=== PATIENT | male | born 1945 | race Native Hawaiian/Other Pacific Islander ===

== ENCOUNTER 2016-05-18 16:53 | Outpatient (CLI) | payer OTHER, BC ==
[~2016-05-18 16:53] MED LIST: BYSTOLIC10 MG PO; LISI10TA11 PO; METFORMIN ER1000 MG PO; OMEP40CA PO; SIMV20TA2 PO
[2016-05-18 17:11] LABS: PLATELET COUNT 133 K/uL (142-355)
[2016-05-18 17:32] LABS: POTASSIUM 5.7 mmol/L (3.6-5.2)
== END 2016-05-18 19:25 | disposition home or self-care (01) ==
LOC: LAB 16:53
PROVIDERS: Internal Medicine
DX: E11.9 Type 2 diabetes mellitus without complications (principal)
CPT/HCPCS: 80053; 80061; 81000; 82043; 82570; 83036; 84439; 84443; 85027

== ENCOUNTER 2016-11-23 09:36 | Outpatient (CLI) | payer OTHER, BC ==
[2016-11-23 09:52] LABS: PLATELET COUNT 134 K/uL (142-355)
[2016-11-23 10:26] LABS: POTASSIUM 4.8 mmol/L (3.6-5.2)
== END 2016-11-23 18:59 | disposition home or self-care (01) ==
LOC: LAB 09:36
PROVIDERS: Internal Medicine
DX: E11.9 Type 2 diabetes mellitus without complications (principal); Z12.5 Encounter for screening for malignant neoplasm of prostate
CPT/HCPCS: 80053; 80061; 81000; 82043; 82570; 83036; 84153; 84439; 84443; 85027

== ENCOUNTER 2017-02-07 11:04 | Outpatient (CLI) | payer OTHER, BC ==
[2017-02-07 11:26] LABS: PLATELET COUNT 152 K/uL (142-355)
== END 2017-02-07 12:05 | disposition home or self-care (01) ==
LOC: LABW 11:04
PROVIDERS: Internal Medicine Hematology & Oncology
DX: D64.89 Other specified anemias (principal); R79.89 Other specified abnormal findings of blood chemistry
CPT/HCPCS: 36415; 82728; 83540; 83550; 85027

== ENCOUNTER 2017-06-07 14:29 | Outpatient (CLI) | payer OTHER, BC ==
[2017-06-07 15:03] LABS: PLATELET COUNT 122 K/uL (142-355)
[2017-06-07 16:02] LABS: POTASSIUM 4.7 mmol/L (3.6-5.2)
== END 2017-06-07 19:26 | disposition home or self-care (01) ==
LOC: LAB 14:29
PROVIDERS: Internal Medicine
DX: E11.9 Type 2 diabetes mellitus without complications (principal)
CPT/HCPCS: 80053; 80061; 81000; 82043; 82570; 83036; 84439; 84443; 85027

== ENCOUNTER 2017-08-13 10:45 | Outpatient (CLI) | payer OTHER, BC ==
[2017-08-13 11:22] LABS: PLATELET COUNT 125 K/uL (142-355)
[2017-08-13 13:07] LABS: POTASSIUM 4.8 mmol/L (3.6-5.2)
== END 2017-08-13 19:59 | disposition home or self-care (01) ==
LOC: LABW 10:45
PROVIDERS: Nurse Practitioner Family
DX: D64.89 Other specified anemias (principal); D50.8 Other iron deficiency anemias
CPT/HCPCS: 36415; 80053; 82248; 82728; 83540; 83550; 85027

== ENCOUNTER 2017-12-17 13:58 | Outpatient (CLI) | payer OTHER, BC ==
[2017-12-17 14:23] LABS: PLATELET COUNT 139 K/uL (142-355)
[2017-12-17 14:57] LABS: POTASSIUM 5.4 mmol/L (3.6-5.2)
== END 2017-12-17 23:32 | disposition home or self-care (01) ==
LOC: LAB 13:58
PROVIDERS: Internal Medicine
DX: Z00.00 Encounter for general adult medical examination without abnormal findings (principal); E11.9 Type 2 diabetes mellitus without complications; Z12.5 Encounter for screening for malignant neoplasm of prostate
CPT/HCPCS: 80053; 80061; 81000; 82043; 82570; 83036; 84153; 84443; 85027

== ENCOUNTER 2017-12-26 08:26 | Outpatient (CLI) | payer OTHER, BC | END 2017-12-26 20:12 | disposition home or self-care (01) | LOC: US 08:26 | DX: Z13.6 Encounter for screening for cardiovascular disorders (principal) ==

== ENCOUNTER 2018-06-21 10:02 | Outpatient (CLI) | payer OTHER, BC ==
[2018-06-21 11:06] LABS: PLATELET COUNT 120 K/uL (142-355)
[2018-06-21 11:13] LABS: POTASSIUM 4.5 mmol/L (3.6-5.2)
== END 2018-06-21 22:27 | disposition home or self-care (01) ==
LOC: LAB 10:02
PROVIDERS: Internal Medicine
DX: E11.9 Type 2 diabetes mellitus without complications (principal)
CPT/HCPCS: 80053; 80061; 81000; 82043; 82570; 83036; 84439; 84443; 85027

== ENCOUNTER → 2018-07-08 | Outpatient (CLI) | payer OTHER, BC | LOC: US 10:43 | DX: R79.89 Other specified abnormal findings of blood chemistry (principal) ==

== ENCOUNTER 2019-01-07 10:11 | Outpatient (CLI) | payer OTHER, BC ==
[2019-01-07 10:33] LABS: PLATELET COUNT 131 K/uL (142-355)
[2019-01-07 11:03] LABS: POTASSIUM 5.3 mmol/L (3.6-5.2)
== END 2019-01-07 19:31 | disposition home or self-care (01) ==
LOC: LAB 10:11
PROVIDERS: Internal Medicine
DX: Z00.00 Encounter for general adult medical examination without abnormal findings (principal); Z12.5 Encounter for screening for malignant neoplasm of prostate; E11.9 Type 2 diabetes mellitus without complications
CPT/HCPCS: 80053; 80061; 81000; 83036; 84153; 84439; 84443; 85027

== ENCOUNTER 2019-08-20 12:04 | Outpatient (CLI) | payer OTHER, BC ==
[2019-08-20 12:57] LABS: PLATELET COUNT 128 K/uL (142-355)
[2019-08-20 13:17] LABS: POTASSIUM 4.5 mmol/L (3.6-5.2)
== END 2019-08-20 20:07 | disposition home or self-care (01) ==
LOC: LAB 12:04
PROVIDERS: Internal Medicine
DX: E11.9 Type 2 diabetes mellitus without complications (principal)
CPT/HCPCS: 80053; 80061; 81000; 82043; 82570; 83036; 84439; 84443; 85027

== ENCOUNTER 2019-11-19 14:02 | Outpatient (CLI) | payer OTHER, BC | END 2019-11-19 22:03 | disposition home or self-care (01) | LOC: LAB 14:02 | DX: R79.89 Other specified abnormal findings of blood chemistry (principal); N40.1 Benign prostatic hyperplasia with lower urinary tract symptoms; Z79.899 Other long term (current) drug therapy | CPT/HCPCS: 84153; 84439; 84443 ==

== ENCOUNTER 2019-11-26 10:50 | Outpatient (CLI) | payer OTHER, BC | END 2019-11-27 | disposition home or self-care (01) | LOC: US 10:50 | DX: R79.89 Other specified abnormal findings of blood chemistry (principal) ==

== ENCOUNTER 2020-02-05 08:52 | Outpatient (CLI) | payer OTHER, BC | END 2020-02-05 20:55 | disposition home or self-care (01) | LOC: CT 08:52 | PROVIDERS: ATTEND Internal Medicine | DX: E22.8 Other hyperfunction of pituitary gland (principal) | CPT/HCPCS: 36415; 82565; 84520; Q9963 ==